=== PATIENT | male | born 1950 | race Caucasian/White ===

== ENCOUNTER 2021-07-28 20:38 | Emergency (ER) | payer MEDICARE, OTHER ==
[~2021-07-28] VITALS: Ht 175.3 cm; Wt 114.2 kg
[2021-07-28 20:49] VITALS: BP 168/89
--- NOTE | 2021-07-28 21:13 | PHYS DOC ---
Past History Past Surgical History: No Surgical History Alcohol Use: None General Adult EDM: Chief Complaint: HYPERTENSION HPI: HPI: Patient is a 70-year-old male coming in for hypertension and left arm pain. Patient has a history of hypertension is taking lisinopril metoprolol. Patient was seen in [facility] emergency department and had extensive work-up this morning including lab work, EKG, CT of his head and CT angio of his chest. Patient has been under increased stress recently as his is being treated for cancer. Patient was discharged this morning but has been repeatedly checking his blood pressure has been going up. Also complaining of pain in his left upper arm. Patient does state that he was having his blood pressure checked on his left upper arm. Recent injury or heavy lifting. Patient states that he came to the emergency department because he was googling his symptoms and concerned about his heart. Review of Systems: Review of Systems: All other systems within normal limits except for as noted in the HPI Allergies: Allergies: Allergies Coded Allergies Type Severity Reaction Last Updated Verified No Known Drug Allergies 07/28/21 No Physical Exam: PE: Constitutional: Well developed, well nourished, no acute distress, non-toxic appearance. [] HENT: Normocephalic, atraumatic, bilateral external ears normal, nose normal. [] Eyes: PERRLA, conjunctiva normal, no discharge. [] Neck: No rigidity, supple, no stridor. [] Cardiovascular: Regular rate and rhythm, brisk cap refill. Symmetric radial and ulnar pulses. Right arm blood pressure 168/89, left 166/103. [] Lungs & Thorax: Non labored symmetric respirations, no tachypnea or respiratory distress [] Abdomen: Soft, nondistended. Skin: Warm, dry, no erythema, no rash. [] Back: Unremarkable Extremities: No deformities, range of motion grossly intact, no lower extremity edema. No palpable cords, tenderness over the left biceps. [] Neurologic: Alert and oriented X 3, no focal deficits noted. [] Psychologic: Affect normal, judgement normal, mood normal. [] Current Patient Data: Vital Signs: Vital Signs Date Time Temp Pulse Resp B/P (MAP) Pulse Ox O2 Delivery O2 Flow Rate FiO2 07/28/21 20:49 98.5 60 18 168/89 (115) 93 Room Air EKG: EKG: Sinus rhythm, left axis deviation, otherwise normal EKG, no STEMI. [] Radiology/Procedures: Radiology/Procedures: [] Heart Score: C/O Chest Pain: No Risk Factors: Risk Factors: DM, Current or recent (<one month) smoker, HTN, HLP, family history of CAD, obesity. Risk Scores: Score 0 - 3: 2.5% MACE over next 6 weeks - Discharge Home Score 4 - 6: 20.3% MACE over next 6 weeks - Admit for Clinical Observation Score 7 - 10: 72.7% MACE over next 6 weeks - Early Invasive Strategies Course & Med Decision Making: Course & Med Decision Making Discussed with patient that we could do a repeat work-up. Patient states he was just worried about his heart and his blood pressure. Discussed following up with his primary care provider for blood pressure management. Patient agreeable to doing EKG and declining repeat lab work. Dragon Disclaimer: Dragon Disclaimer: This electronic medical record was generated, in whole or in part, using a voice recognition dictation system. Departure Departure: Impression: Primary Impression: Hypertension Disposition: HOME / SELF CARE / HOMELESS Condition: STABLE Referrals: BRONWYN VAZ MD (PCP) Patient Instructions: How to Take Your Blood Pressure, [id number] LINA GARCIA MD Jul 28, 2021 21:12
--- NOTE | 2021-07-28 21:48 | EKG ---
[address] [address] Test Date: 2021-07-28 Test Time: 21:16:22 Pat Name: SEBAS RAMOS Department: Room: Gender: M Global Program Director: : [id number] Requested By: LINA GARCIA Order Number: [id number] Reading MD: Daljit Villareal Measurements Intervals [place] Rate: 50 P: -24 WI: 186 QRS: -5 QRSD: 94 T: 5 QT: 412 QTc: 378 Interpretive Statements SINUS RHYTHM ATRIAL ESCAPE COMPLEX(ES) LEFTWARD AXIS NON SPECIFIC ST-T WAVE CHANGES Electronically Signed On 07-30-2021 18:18:07 CDT by Daljit Villareal
== END 2021-07-28 21:36 | disposition home or self-care (01) ==
LOC: ER 20:38
DX: I10 Essential (primary) hypertension (principal); M79.602 Pain in left arm
CPT/HCPCS: 93005; 99283